=== PATIENT | male | born 1955 | race African-American/Black ===

== ENCOUNTER 2023-10-13 15:52 | Emergency (ER) | payer OTHER ==
[~2023-10-13] VITALS: Ht 175.3 cm; Wt 98.8 kg
[2023-10-13 15:53] VITALS: O2SAT 98
[2023-10-13 18:13] VITALS: BP 146/81; TEMP 98.3
== END 2023-10-13 18:24 | disposition home or self-care (01) ==
LOC: M ED 15:52
DX: S80.12XA Contusion of left lower leg, initial encounter (principal); R22.42 Localized swelling, mass and lump, left lower limb; W17.89XA Other fall from one level to another, initial encounter; I10 Essential (primary) hypertension; E78.5 Hyperlipidemia, unspecified; J45.909 Unspecified asthma, uncomplicated; Y92.9 Unspecified place or not applicable; Y93.89 Activity, other specified; Y99.9 Unspecified external cause status